=== PATIENT | female | born 1970 | race Caucasian/White ===

== ENCOUNTER 2021-12-08 15:37 | Emergency (ER) | payer OTHER ==
[~2021-12-08] VITALS: Ht 152.4 cm; Wt 113.4 kg
--- NOTE | 2021-12-08 16:57 | NUR ---
1625: Dr. Burns at bedside for physical examination. Orders carried out. 1635: Radiology at bedside for medical imaging. 1647: Patient denies any distress at this time.
[2021-12-08] MEDS ORDERED: HYDR-3972 PO (17:29)
[2021-12-08] MEDS ORDERED: HYDROCODONE/APAP 10-325 MG TABLET PO ONE (17:30)
[2021-12-08] MEDS ORDERED: HYDROCODONE/APAP 10-325 MG TABLET ONE (17:34)
--- NOTE | 2021-12-08 17:47 | NUR ---
Patient resting comfortably.
--- NOTE | 2021-12-08 18:17 | NUR ---
1800: Sugar tong ankle length was placed. 181: Left lower extremity reassessed. Able to move toes with good circulation, sensation, and motion. Denies numbing and tingling sensation. Able to verbalize concerns. 182: Discharge plan discussed. Bathroom privilege allow with assist.
--- NOTE | 2021-12-08 18:28 | NUR ---
Discharge instructions provided. Questions answered. Crutches issued to patient and educated on use. Stable upon discharge.
[2021-12-08 18:44] VITALS: BP 134/78
== END 2021-12-08 18:35 | disposition home or self-care (01) ==
LOC: ER 15:37
DX: S82.62XA Displaced fracture of lateral malleolus of left fibula, initial encounter for closed fracture (principal); W01.0XXA Fall on same level from slipping, tripping and stumbling without subsequent striking against object, initial encounter; Y92.89 Other specified places as the place of occurrence of the external cause
CPT/HCPCS: 73590; 73610; A4663